=== PATIENT | male | born 1955 | race Caucasian/White ===

== ENCOUNTER 2024-06-16 08:23 | Day surgery (SDC) | payer MEDICARE ==
[~2024-06-16 08:23] MED LIST: Sodium Chloride 0.9% 10 ML Syringe FLUSH PRN; Sodium Chloride 0.9% 10 ML Syringe FLUSH SCH
[2024-06-16] MEDS: Lactated Ringers 1,000 ML IV SCH (08:40)
[2024-06-16] MEDS ORDERED: Propofol 200 MG/20 ML SDV ONE ×2 (08:56)
[2024-06-16] MEDS ORDERED: propofoL 500 MG/50 ML 50 ML ONE (09:28)
[2024-06-16] MEDS ORDERED: Lidocaine 2% 5 ML SDV ONE (09:32)
== END 2024-06-16 10:42 | disposition home or self-care (01) ==
LOC: JD.SDS 08:23
PROVIDERS: ATTEND Surgery
DX: Z12.11 Encounter for screening for malignant neoplasm of colon (principal); R19.5 Other fecal abnormalities; D12.5 Benign neoplasm of sigmoid colon; I10 Essential (primary) hypertension; I25.10 Atherosclerotic heart disease of native coronary artery without angina pectoris; E78.5 Hyperlipidemia, unspecified; Z79.899 Other long term (current) drug therapy
CPT/HCPCS: 45380; 88305; J2003; J2704; J7120; 00811